=== PATIENT | female | born 1970 | race Caucasian/White ===

== ENCOUNTER 2023-10-10 08:56 | Outpatient (OUT) | payer OTHER, SELFPAY ==
--- NOTE | 2023-10-10 09:07 | XR_ITS ---
The [address] [address] Patient Name: LISETTE CAVANAUGH MRN: [id number] date: 1970 Sex: F Assigned Patient Location: [place] Current Patient Location: Accession/Order Number: [id number] Exam Date: 10/10/2023 09:24 Report Date: 10/11/2023 09:27 At the request of: LEONARDO VINES Procedure: XR tibia fibula LT 2V PROCEDURE: XR tibia fibula LT 2V HISTORY: Pain Of LEft Lower Extremity M79.605 ; bump that swells on distal leg COMPARISON: None. FINDINGS: BONES:No fracture, acute abnormality, or significant arthropathy. SOFT TISSUES:No visible soft tissue swelling. Skin surface marker anterior to distal tibia with no underlying abnormality. EFFUSION:None visible. OTHER: Negative. XR/XR tibia fibula LT 2V IMPRESSION: 1. No acute or suspicious bone abnormality. 2. No appreciable soft tissue abnormality with specific attention to the anterior distal lower extremity. Electronically authenticated by: NICHOLAS TRAN Date: 10/11/2023 09:27
--- NOTE | 2023-10-10 09:07 | XR_ITS ---
The [address] [address] Patient Name: LISETTE CAVANAUGH MRN: [id number] date: 1970 Sex: F Assigned Patient Location: US Current Patient Location: US Accession/Order Number: [id number] Exam Date: 10/10/2023 09:24 Report Date: 10/10/2023 13:02 At the request of: LEONARDO VINES Procedure: XR lumbar spine 2-3V EXAM: XR lumbar spine 2-3V HISTORY: Lumbosacral Radiculopathy M54.17 COMPARISON: None. TECHNIQUE: 3 views FINDINGS: Satisfactory alignment. Maintained vertebral body heights and disc spaces. Multilevel endplate degenerative changes, anterior spurring and facet arthropathy of L4-S1. No acute fracture or significant subluxation. Constipation. XR/XR lumbar spine 2-3V IMPRESSION: Degenerative changes as above. Electronically authenticated by: ANATOLY MENESES Date: 10/10/2023 13:02
--- NOTE | 2023-10-10 09:07 | US_ITS ---
The [address] [address] Patient Name: LISETTE CAVANAUGH MRN: [id number] date: 1970 Sex: F Assigned Patient Location: US Current Patient Location: Accession/Order Number: [id number] Exam Date: 10/10/2023 09:08 Report Date: 10/10/2023 10:46 At the request of: LEONARDO VINES Procedure: US venous doppler LE LT EXAMINATION: US venous doppler LE LT HISTORY: Pain Of Left Lower Extremity M79.605 COMPARISON: No relevant comparison available. FINDINGS: REGION: Left lower extremity THROMBI: None. COMPRESSIBILITY: Normal compressibility. FLOW: Normal waveform and antegrade flow between 5 and 20 cm/s. OTHER: None. US/US venous doppler LE LT IMPRESSION: 1. No deep vein thrombus within the left lower extremity. Electronically authenticated by: NICHOLAS TRAN Date: 10/10/2023 10:46
== END 2023-10-10 08:57 | disposition home or self-care (01) ==
LOC: US 09:01
PROVIDERS: PCP Nurse Practitioner; Visit Provider Nurse Practitioner
DX: M79.605 Pain in left leg (principal); M54.17 Radiculopathy, lumbosacral region
CPT/HCPCS: 72100; 73590; 93971

== ENCOUNTER 2023-11-11 12:27 | Outpatient (OUT) | payer OTHER, SELFPAY ==
--- OUTSIDE RECORDS SUMMARY | 2023-11-11 12:56 | XMS_ITS | CCD ---
Author Organization [facility] Care Team Providers Care Segment Block Layer Name Role Phone Aubrie Mcduffie Primary Care Provider AUBRIE MCDUFFIE Referring Unavailable AUBRIE MCDUFFIE Primary Care Unavailable AUBRIE MCDUFFIE Primary Care Unavailable AUBRIE MCDUFFIE Referring Unavailable JONATHAN CORREIA Attending Unavailable AUBRIE MCDUFFIE Primary Care Unavailable MITCH, RAÚL S Referring Unavailable MITCH, RAÚL S Attending Unavailable MITCH, RAÚL S Attending Unavailable FROY AUBRIE Referring Unavailable AICHHOLZ, COURT OF APPEALS JUDGE AUBRIE Admitting Unavailable AICHHOLZ, COURT OF APPEALS JUDGE AUBRIE Attending Unavailable AICHHOLZ, COURT OF APPEALS JUDGE AUBRIE Admitting Unavailable AICHHOLZ, COURT OF APPEALS JUDGE AUBRIE Attending Unavailable DR LAKEISHA MONET V Consulting Unavailable BAOHCHRISTIANO, SHANTHI DAVENPORTA Consulting Unavailable Aubrie Mcduffie Primary Care Provider MD Deejay Larios Attending Provider [phone] Deejay Larios Admitting Unavailable Deejay Larios Attending Unavailable Aubrie Mcduffie Primary Care Unavailable Deejay Larios Unavailable AUBRIE MCDUFFIE Primary Care Physician SHEBA FRANZ Attending Unavailable SHEBA FRANZ Admitting Unavailable SHEBA FRANZ Attending Unavailable SHEBA FRANZ Admitting Unavailable AUBRIE MCDUFFIE Attending Unavailable Allergies Allergy Classification Reported Allergen(s) Allergy Type Date of Onset Reaction(s) Facility (1 source) some foods Propensity to adverse reactions Unknown [facility] Other (1 source) soaps Propensity to adverse reactions Unknown [facility] Other (1 source) perfumes Propensity to adverse reactions Unknown [facility] Other (2 sources) Penicillins; Translations: [penicillins] Drug allergy Unknown (qualifier value) [facility] (1 source) No Known Medication Allergies; Translations: [No Known Medication Allergies] Propensity to adverse reactions (disorder) [facility] Medications Current Medications Medication Drug Class(es) Dates Sig (Normalized) Sig (Original) acetaminophen 325 mg / HYDROcodone bitartrate 5 mg oral tablet (1 source) Opioid Agonist Start: 01-04-2021 take 1 tablet by mouth every four to six hours Hydrocodone-Acet aminophen Active 1 TAB PO EVERY 4-6 HOURS 20 4 January 04, 2021 albuterol HFA 90 mcg/inh MDI (1 source) Start: 07-01-2017 take 2 puff(s) by inhalation every four hours for wheezing albuterol HFA 90 mcg/inh MDI 2 puff(s), Inhalation, q4hr for wheezing, 8.5 gram, Refill(s) 0, use with spacer chamber Start Date: 07/01/17 Status: Ordered cephalexin 500 mg oral capsule (2 sources) Cephalosporin Antibacterial Start: 01-17-2021 take 1 capsule by mouth three times daily cephALEXin (KEFLEX) 500 MG capsule Take 1 capsule by mouth 3 times daily 21 capsule 0 01/17/2021 Active PARoxetine hydrochloride 20 mg oral tablet (2 sources) Serotonin Reuptake Inhibitor Start: 12-13-2019 take 1 tablet by mouth once daily Paroxetine Hcl (Paxil) 20 mg Tablet Active 20 MG PO Daily January 03, 2021 11:00pm Problems Problem Classification Problem Date Documented Date Episodic/Chronic Fracture of upper limb (2 sources) Fracture at wrist and/or hand level; Translations: [Fracture of unspecified carpal bone, unspecified wrist, initial encounter for closed fracture] 01-04-2021 Episodic Genitourinary symptoms and ill-defined conditions (1 source) Incontinence 12-13-2019 Chronic Genitourinary symptoms and ill-defined conditions (2 sources) Microscopic hematuria; Translations: [Urgent desire to urinate] 12-13-2019 Episodic Other diseases of kidney and ureters (1 source) Cyst of kidney 12-13-2019 Episodic Other nervous system disorders (2 sources) Lesion of ulnar nerve, right upper limb; Translations: [Cubital tunnel syndrome on right] Chronic Other nervous system disorders (1 source) H/O: migraine 07-01-2017 Episodic Other non-traumatic joint disorders (1 source) Shoulder pain; Translations: [Pain in left shoulder] Episodic Other non-traumatic joint disorders (4 sources) Pain in right wrist; Translations: [PAIN IN RIGHT WRIST] Onset: 01-01-2022 Episodic Other non-traumatic joint disorders (1 source) Other specified joint disorders, right wrist Episodic Other screening for suspected conditions (not mental disorders or infectious disease) (1 source) Tomography - chest abnormal; Translations: [Abnormal findings on diagnostic imaging of other specified body structures] Chronic Ovarian cyst (1 source) Cyst of ovary 02-01-2014 Episodic Residual codes; unclassified (1 source) Other specified postprocedural states Episodic Spondylosis; intervertebral disc disorders; other back problems (1 source) Backache 12-13-2019 Episodic Substance-related disorders (1 source) Smoker 12-13-2019 Chronic Comment on above: Added secondary to d ocumentation in Social History. Unclassified (1 source) Other intraarticular fracture of lower end of right radius, subsequent encounter for closed fracture with routine healing; Translations: [Other intraarticular fracture of lower end of right radius, subsequent encounter for closed fracture with routine healing] Onset: 09-03-2022 Urinary tract infections (1 source) Recurrent urinary tract infection 12-13-2019 Episodic Results Test Name Value Interpretation Reference Range Facility Coding Summary.on 10-11-2022 Coding Summary. [id number] G h0bWw+PGhlYWQ+XN6JKSC zW38lkIDlmU7nQ6PNXKcL SywgQVBQTElOSyIgbmFtZ X4akHQqQVJx IC8+ZT0nRXOxTidmgHOfs 3V5mKQ1K99ypx6wVWkdkO Z3JPHlLdOqwafef4rplJy 6IDcuNmluOyBt HEHsbL84TNX4wA50Vu82o ZPpdFVpi5dzjEe1XkKqRC VyKIK3uRziOQwth6PkPDX yZ88qdAZte0R7 KUKaaXslmCQyTwTfkEK5t W8kGYboqkhus5pldagfLv w4ve77pWSaz5H4mVK8A9C xviG8XCRlcXSd AktquHVObM1fkqamm9meg kxtLvBkNAIlMPv6VUt8UF ZajObbXpJxPY93DSG6DUE fkvVbO2RcGXTf sDaxHoA7z9U1Zt5OY1AEK sncY1HLYIVKUMgoyJK+PC 89sz96S1GlXqghQkm1XQI iYQS3mXK2nM5q JWEqJUjjz2A1eKB1V8Tdw qMvtk8mb9imSLHtIJbjI6 3awANcp3O0PGYxfVG1FBO kvKqeXkIzaI20 Oyc+ZKJtqOwiv9FlYtlbt 2dia6axxYg3PyytOUFidv IlvYieXGB5e3MmWj0gMND xgTF9mFU0cI8x ZxXuOpA2RUuoH622VlDjz GXkYvqaZ41iE6CcaIK+PH KeVum2JZWilCxeDI0vK6V hZGRpbmctbGVm eAhpRL0yGNXzbrrqJZKzk D9uLDHzD3x9IdScKbU3IU wuD7PaWZKyekhtWm93fM7 kDxHyToR0BRiy B5ZkjeP8EGUgcPRvJPfyI PB0O45vt0U2KJNjOCSjZD D1mUZ8fM9xyAlstcktcUN mdDsgdmVydGlj ZJmuKGrhY253IDRjxZtcU kNvZGluZyBEYXRlOiAgMD MvMTcvMjAyMzwvdGQ+PHR lYBY4hVsoXOAa zSNrIYruXa2rbAmmpIddT W0eLNDedseoIMTbvC2cCE YjyDCtbBkrXV4bPORovmq ie403OtEhSAI5 YMJfpQRzI5KmvF1eXoDoS FJwOWMcT0XezXDlNWdqM7 29UDclKbM2XDXogoHmS8O sLWFsaWduOiB0 d6K4Se4Gf7ZxfjccR9Vyf WUwXnVgKmgrFCh8O5EyFr wvdHI+XX24ZJFlRX10LQo 1OFJ8dZktHHnb SSUwL1SkoP3wZhDtYJZjS GRkOyc+PHRhYmxlIHdpZH RoPScxMDAlJyBzdHlsZT0 jAp5eUPNgHPDa yJbpfVKjQnRjm9vxVRObA GdpLD6zkEidZ1QtcPV2UP Dah5p9Ko26O05xM5KzqRZ +PTWgrZO4yKI3 mY2dXxJgZqR0JKemW732W cUlgSXrGcmud5svz9lnbH g7ZpL9RDJwaiQljBldGCL 0b7CpMh51P07g IHdpZHRoPSIxNSUiIHZhb Cbrjb8kvF2fFy1+PGNvbC S9qMB6vD5qIbYiWfV6WHn gT642BrSsyYEg Wmvla1fnw9ujkCh7CtQyM KMivbFxnRmyXYX5g0KkXr 93P3SqlPukv8KqOwa0ql1 3nVBoy5W0sGL8 U3GrEWVnykqpyZHkzFveK V8gPPMfjpldHKAyvK5wKA KhW1e7QbLiNoU1TUwiY7P azjH8KDFuuJLo CSBabEJBuU8timmiv7bfi oljBmBfURStXEt0SLc6LY IjcMyiMcZiDQF1WgW7WHG 6mKYlcN0xnLoa ugxspD9yUxs+XYC0lMQnd SAQWX8pWtpmdDN+PHRkIH O1fVxhCMidSGNujC4gTHF sZ7n4XrUhNoB3 RPmjH6XnqqY4SWHmxHBvR SNbuFRAxT1kjywfn3rbex xcQhJmHAAcGNl3WWz7FVZ saWduOiBsZWZ0 LnH7ZWC3jPUphM5rpEmie dxyqQ1nPuo+QmlydGggRG D4AAt1S4GgTiu6PWMgeQy wKQ5jwKMsZEyy Tp5qdMlxaHbtDX8yREAel xbjl458PeKdw1ffQWDesF SxNWzhGVI0M47mp3C3HFK fFXMpQLE0jQU2 tF0phUucjsjtrQFzkEckx eWabBnfLFltVJzgM895CK LmaVayQjUdCVc8Y5DkUjx 7EHTxeVwtIG8k uITkUCriXu4xmCpmbEoeX Z7uWHYjgpmcw674BeItf6 auEWZbkBTbULgaHZJ8T26 zo0A2YZWaXJBh RSI4fWR2mT5evNpinagmh GVmdDsgdmVydGljYWwtYW awD272JVImwKzsZpLdlKh 9C5TsPyo2TAQf jUqqAG5gmIBzZTxiZe2ml AoqfKlvCZ6mFBGzikoyb5 32UjWvj6ruGESzwJGgZVn yZJF8S58yc6X6 IWMcCEWgCET1wJN6mO7pn GlnbjogbGVmdDsgdmVydG ayVOcsZMuaM645CLMjhYs nPlBhdGllbnQg CZypWFt9W8LtJnwhxBJ+P S96XIOdFR21bYQkaDVmj3 jbuWq9AkSrLKUuMQF9jUe sMLsbh6YqDYWz E18awBWry4D2WXPyfQbzx GFzQeKsgIL6aY0qRTrkqf lwx9dwjajdDqlrp2ihja6 4pX19J29hOYcn ZHRoPSIzMCUiIHZhbGlnb u0djQ0zAt7+VLMqpEL6nC Q7cC6vCYLiHfX3ZRwmJ10 9InRvcCIvPjxj e1zps4tohJp1HrT0SGSrz bGczZehZWA7n8SoLz58R2 9sIHdpZHRoPSIyMCUiIHZ xmLiszq9vlL4f Ii8+NVUziIA4xDQ1mE8zW xWiJzI9KKcjN022KkZnfK SiBhqgB95tK0YahGJ+PHR xQan1WCYtfHct ZN7thXXsOQizWc8mVNS5H xWhMdEvSPsqP2LnMQZrfj qburbbeLI3ZCDyONCghU6 7Yp4fcKfzQJSt dSXQwE0heerwx7navagfU iWnXOGyIZl8WBu0JTCwnK rpNrIyLAX2HwJ3MWH1wNB fuR6hsTgwndxb oY1gU2PqJPSwjbebAr26g E2gOcTbDsL3BPahAgw+SE vGU5JhQNaQMv7DFVM1U4P mPdr6ZJRakBuf UB0frEJgOEurZq7kgQbvx EfiNZ2oWBTmodccHUZviK 3dELVbeGJqzErrSL0gRSK osekji258EpBj EFX0ENGccRKuA4YrkX2sJ sRhESAwSHNjQ5NcoZFaIA rzK270RBhkDdA7TCXkrcE vK9BbMGLbdOjq XrC3v5C5Wh6jRC2iDF9vP WlvOK43DO82dQKwr4W1lC X5B5VgGFRrsdswdjaniUE 5QUHpASGwiF01 vNLoHBuuRw8rj6S9u347E DYvAMRtdQ74Pv4goWnrWU GepDDIzM5xifokc9mspkm gIzAwMDAwMDt0 RDu3FTUudCnpPqScLYT1H xW3FOR3iZOwtS8zjBumaw vboH1zItl+NTEgWWVhcnM 5N4GsNse5MMCe dGpwNM4whYOfLYcuQq3wf VlprEomAJ2kWMZjzsxqPO WsqK2hQWUvxJPtrRugMQ7 tYGXfqyxgh194 ZiBqIUY5RFLutFAiZ5Wuk I3vTrXyUGRrDGTfB0QwhQ KrTObaD892MAkuKqG0HDR ekcFpY6QmSJUq dShfWjQ1z9D5Ac6MCD2oa JI7K2VfNot6AVHejIldZJ 6ixGUdKDhmYr7xwXxtqWz kMG6yFBNuvakv IBCrbE8kXHGfeGGdzMgbJ V9hWLXrhplfm283IqPbDQ E8HKWdeTXlY0DqoC9iCmB dBGKtEMIkU1Ww pRBcWNtwP997YBtdWsZ5J UNpybPuH2CpNHSqoRpsNw F8q2U4Gq6EuFWsNVPnMK6 1WA82GX57R1Xz PjwvdGFibGU+PHRhYmxlI HdpZHRoPScxMDAlJyBzdH fkDV6wYy0wGWTsHPTsaYv quKSfIiIkj2iq CZQdIYkuZJ6skHyfP7Uzc MH7CXXmq0k6Bm17E56nR9 JvdXA+FBWgxQA3tJQ8bQ8 sRjAvIkY4ITdc C456CcZxvSEaYeleg4kab 7fhcUl3LiWlSYTmqcAgcU htXQK9w2SxSv13O25sAVw pZHRoPSIyMCUi GLNrhMbebu2orX0sTi6+P BYfwQI0lUQ1cS2sEdKmWf R9FYrgZ062WlCkgNMtFqq rT40oD1WbjYY+ RRJzYdh5JQOtcTiaTP6iw QZjCPhkZh6aQIC4RcOzFs OpBCjyR2BxPNYchdgljqw qpYI3LMHsKAWv lI37Ei1vuSaqYy5mSABtW EB4KDVcoIFqV6MzzL4iWe GgRNAyJQDuI3TnxRReHJt hN369ZVnsLnG8 BIEicqIpW7LbKMQqbTabY tJ1d1Z3Ur7AcNtrrFRyHJ 0sWjXtKVm2J6SwMwl1TWP snRkeLW3iyWIn PSaiFx4plTcaaQuuSA3oG WBikbilu019BhUak8tjIC XtyQYaPYewBCA4U12np3N 5LXYiHINqXJO5 aII7tZ1tqCnptwtoqFIin DsgdmVydGljYWwtYWxpZ2 05CAJucTwxCdILVwb5P8P qOhw6HIEicVne SB7vaLPsAZywLr1heBdjn YopGB3oJGQqfmidu648Lx Ceq7eeSQIduDCxUOvwYOQ 3C35am8Z5JVFi PNVzAFF2qTP2yR1afGxnw jogbGVmdDsgdmVydGljYW akWYmnY867PIDjfPqhMi2 NRxx2N6EmFny2 GUDhbSlmHF3itWKiALakO m7laEerjIldUS2vYUXnts xgi239TlMjm2yjVSKguMG bFSzoAVZ0S85b y6Z1GQFzXQVkESF0nVJ4o O0peHxegxmygQIrtXtrfa OvsJzwKPgnAEcnF988KBV vcDsnPlBheWVy OjwvdGQ+TH40dl18B3GyE qefDpq7HJEaWCM8bYP9hW 7cSDEaMZesr8T2vYD2P5A sorJwkl8vu7eu YXBz (more content not included)... Normal [facility] Estrone Lvlon 10-08-2022 E1 [Mass/Vol] 26 pg/mL Invalid Interpretation Code [facility] Comment on above: Result Comment: Rang e Adult (Premenopausal) 27 - 231 Menstrual Cycle (1-10 days) 19 - 149 Menstrual Cycle (11-20 days) 32 - 176 Menstrual Cycle (21-30 days) 37 - 200 Adult (Postmenopausal) 0 - 125 Performed at: [place] [id number] MD Mason Kidd Performed By: #### 1 [id number] #### [facility] [address] [place] [address] Consent for Treatmenton 09-25 Consent for Treatment [id number] .[id number]:127 Normal [facility] Physician Orderon 10-04-2022 Physician Order [id number] .00CD:127 Normal [facility] XR wrist RT min 3V*on 2022 XR wrist RT min 3V* [facility] Main [place] [id number] XRay Report Signed Patient: Nirali Cavanaugh MR#: [id number] 5 : 1970 Acct:[id number] Age/Sex: 52 / F ADM Date: 09/03/22 Loc: [facility] Room: Type: [facility] Attending Dr: Deejay Larios MD Copies to: Deejay Larios MD Ordering Provider: Deejay Larios MD Date of Service: 09/03/22 XR/XR wrist RT min 3V*: Other intraarticular fracture of lower end of right radius, RIGHT WRIST - 4 views CLINICAL DATA: Follow-up fractures COMPARISON: 02/15/2021 AP, lateral, oblique and ulnar deviation views were obtained. There is redemonstration of a volar plate and screws along the distal radius. The fracture at that site has healed. A tiny ununited ulnar styloid fracture is again noted, without change. No new fracture or dislocation is identified. No focal soft tissue swelling is seen. XR/XR wrist RT min 3V* IMPRESSION: STABLE WRIST FRACTURES AND FIXATION HARDWARE. Impression dictated by: Emma Morris M.D.09/03/2022 10:22 AM Dictation Location: [place] [address] Transcribed By: [facility] 09/03/22 1022 Dictated By: Emma Morris MD 09/03/22 1021 Signed By: 09/03/22 1022 [facility] Cortisolon 08-30-2022 Cortisol [Mass/Vol] 20.5 microgram/dL Invalid Interpretation Code [facility] Comment on above: Result Comment: Nirmal isol AM 6.2 - 19.4 Cortisol PM 2.3 - 11.9 Performed at: [address] [id number] PhD Marely Enriquez Performed By: #### 1 [id number], [id number], 2036840, [id number], 8269975, 93049348, [id number] #### [facility] [address] [place] [address] DHEASon 08-30-2022 DHEA-S [Mass/Vol] 107.0 microgram/dL Invalid Interpretation Code 41.2-243.7 [facility] Comment on above: Result Comment: Perf ormed at: [address] [id number] PhD Marely Enriquez Performed By: #### 1 [id number], [id number], [id number], 4870892, 17349380, 9356951, 77087745, 4262345 ####[facility] [id number] [place] [address] Estradiolon 08-30-2022 E2 [Mass/Vol] pg/mL Invalid Interpretation Code [facility] Comment on above: Result Comment: Adul t Female: Follicular phase 12.5 - 166.0 Ovulation phase 85.8 - 498.0 Luteal phase 43.8 - 211.0 Postmenopausal <6.0 - 54.7 1st trimester 215.0 - >4300.0 Ryan ECLIA methodology Performed at: [address] [id number] PhD Marely Enriquez Performed By: #### 1 [id number], [id number], 2966461, 2412895, 12295592, 9914278, 32131959, 1152300 #### [facility] [address] [place] [address] FSH and LHon 08-30-2022 Follitropin Qn 115.0 m[IU]/mL Invalid Interpretation Code [facility] Comment on above: Result Comment: Adul t Female: Follicular phase 3.5 - 12.5 Ovulation phase 4.7 - 21.5 Luteal phase 1.7 - 7.7 Postmenopausal 25.8 - 134.8 Performed at: [address] [id number] PhD Marely Enriquez Performed By: #### 1 [id number], [id number], 9519648, 4450378, 17068497, 6063558, 67791761, 7849993 #### [facility] [address] [place] [address] Lutropin Qn 52.4 m[IU]/mL Invalid Interpretation Code [facility] Comment on above: Result Comment: Adul t Female: Follicular phase 2.4 - 12.6 Ovulation phase 14.0 - 95.6 Luteal phase 1.0 - 11.4 Postmenopausal 7.7 - 58.5 Performed By: #### 1 [id number], [id number], 4732181, 6259887, 00373527, 1773681, 15765918, 3898528 #### [facility] [address] [place] [address] Testosterone F&Ton Testosterone [Mass/Vol] 46 ng/dL Invalid Interpretation Code 4-50 [facility] Comment on above: Performed By: #### 1 [id number], [id number], 7419548, 2251202, 03633302, 9231205, 97928324, 1113365 #### [facility] [address] [place] [address] Testosterone Free [Mass/Vol] 1.9 pg/mL Invalid Interpretation Code 0.0-4.2 [facility] Comment on above: Result Comment: Perf ormed at: [facility] [address] [place], [place] [id number] PhD Marely Enriquez Performed at: [address] [id number] MD Mason Kidd Performed By: #### 1 [id number], [id number], 5230963, 3038817, 84453808, 2274676, 88711167, [id number] #### [facility] [address] [place], [place] [address]ang[place] [address] Coding Summary.on 08-27-2022 Coding Summary. CD:[id number] G h0bWw+PGhlYWQ+NQ1AVXG lA46tnJQfeI8HW5nQAH5D DSGVMWTBGK0UMI8baZZ3Y PbfI8SobjXk KyekyXEjFE83JRc6IAR5v ZncIQsksY0zuSOlW2m7Of RwRA42iI48ZPtuFNExRlY 3LjZpbjsgbWFy M9fpHpLquPFjDqr+PHRhY mxlIHdpZHRoPScxMDAlJy WwpSjzUU6mIa6kJNJoDXD vbGxhcHNlOiBj j4zdQYIfBFbhCH9ehRxyA 4TqnIN7WHPzp4b1Jz09bD I+FUOkNZD0bYpsIKfgp48 1XjKqr0rxDYN6 sONeFVumQWB9T09qd6O8N YFrAETrGKI5pAY6oS6hhV erpqcdL7LeoUDnFtJ5HPE 7pBTxwD4bmChl gnzhwF6gSee+V25ZCV2DF IGMCQ9RAqc8J3ZvUibufE I+UY18NDBoSQ72iZLvnCQ nd3qbdCz2UgDx DHWmVOL0pHsoOKfve9SmO TAnC28lfTAyz6Y9HYVczF vvlNTbIkNvfBK1tW5uBXk kkxqyp9yqutjc Xjcoh0pnaw06oO12W96qY IcsWNHcUFN4QNHnOKQnuJ zxno4grS9aRx5+MPegk5o dx8qymSg1KgLz VERbhbGofGjnZTB2o7XgW x80O5KkkWtrc7LwAgu3fu 97zSRgi5X4wWS6APnbVOF teH1xPSjxBgT3 OBYhDwHxsV66fJPwCCfvU m7aiScwrOusNC6nSCGfiu kpWEBzzU0tURPouRVxhYw jMB6dKTHnuoqx h967NiDiACI2OUPsoBMaH 0DqdI5hIlVzTQCyIZNrE9 MnwEYiEMmoZ867RTzeEdU 6FWCsjoChD6Gb AKKapZynFwX2f9X3Yc2Qr 5MnyfzcYXK6RWytQNNeZu NmDcCsWiT8D8KvNgp9ZHH hqXmpDR7nK5Yp HVYzfrdtytkfkBL0HLNxL CTayK55aYJjOWmiZs4bs5 S9n817KGVyHYAypO64Sz4 udDogMTBwdCBU wH4rohtuc2ipcdrvCjTwS GVsJMz2GDq5NEGcwGzaTz WyZOB1YfO1QRB8yELxnW7 mpUjybrkgpN5i Oyc+J30kuC4oFAY1RWI3b gplPSVoftTuMZ32DF58H3 RyPjwvdGFibGU+PGRpdiB caYpxDJ8uOfAf v5yue9HqAVwtD9BySAXpZ NnqZfz8VONqRVT3rXD2dY 4xJIZsMArdi2N6xZH4M5G uzoAfet1kg1zi DKInGJcsM08owZFum0I9B QYhmCJ4VAPnkBrqNmQbkN 93Oyc+GEQrfDqvh1VpOxb ts8ziq9rvlNn3 BoHvCJRdipNvlBwkERF0s 3XoCw00B23fUMtvCHCmOW TpPSGyLLOkgAjldp9syI8 wIi8+PGNvbCB3 gHJ8dK5vGZLeOkK9KEyjP 680EqCazVQxIxzkz5vjf2 drxGt7KgGoEJIdzhBqtQq rTWV9d4XeNq57 Z41sGUohCQWyFBSeKCTwQ DCgkAgaad0arO8eTy3+PC 6wf8kqjq51pE79oUO+PHR vNUY9cBnyVLmy FVCoaQ8vRUtvGwG7SBRzD eJerR82jTMzYLjgCj2rmY orjEpzMX4kJAIptosrr73 5ClYme8ffUVBh jAZbPGqlDIH7G02vm1G5N WWnMOEnYXC3oPW6nU4iwR lnbjogbGVmdDsgdmVydGl iVRafPJucC186 IHRvcDsnPlBhdGllbnQgT eWtPZe0E6ScWpr9MBZzpM ywTD3cbVSwSAcpGa6viRk uwRdyYF2eBYGq rebje094TrLib9yeHJPkx IDjFYpvRES5B81ab5W5RS DfTZSgFTA9vAR2kU2aiUf nbjogbGVmdDsg vtOfcXtuEGsnUMjlP376R HRvcDsnPkJpcnRoIERhdG W5WM03HI63kIQnc6R8eMV 9J9QqSSOcgonp fpoqlDI3CYIuWNGmiJ55M z0avQjfQe5ySSIcYTQ9XG XzsFGlR2DtiG5oGyUaVRN gKMKgS8VfxAFt MJkgU686NNztBaF0DZKtm qEsT5SmKEHguYnzKoX1o3 S4Mj7HH2Z8DS74BU83cFK dt9W0vTV1M8Bw ZQClmibcbmxhbJC5DPYxQ MYcdG32Oc2hhLwlFt6wKB IlMLO1GJWgqUKzP2PplP5 yOiAjMDAwMDAw H8DntWQcJRfxW321AGcuB iG2SOVwmvJoH7FdFSYgkQ nfKdK4z9I0Vd7MGVe7TW9 9WD87mDIgm3W8 qZR1B5PlNBAfdocbjykml QP1DTNtXGOseA42Ue5scD oaDj5cZDOzMMP6KJZuoXC gN1SmkP1uDcFv AAWxRHNpE8ZpyWQhKHbuF 266NIvlGmH4IELribPyS1 CkIOMrbDmgZwN0w6T0Pg2 GHSCuVU36IGO1 nUM3TG69CL89H7SrUdqku GFibGU+PHRhYmxlIHdpZH RoPScxMDAlJyBzdHlsZT0 eKj5xCEDtNUWi aYowuHPcUpUrb7gsPCRyI HlxYA3nnJrtW0OrxVV4PF Kho0p5Vm45E03uB7UyuAW +RVFvqYB3mTY1 tS0eBiLpMpF7HLsiI766G dJlwYEeSrbeb6tws8kxzR j9PxL0MUSmbkZptTenZTK 0b8WqTf73C72i IHdpZHRoPSIxNSUiIHZhb Htzhm0meA7gHw3+PGNvbC X7sRI2vK5iBvVmXaA1RLf zG375LyGaqTSh Aoyyb9fqk9braFd5EuNzB CFutcZaqRgkKYN4p9VjLo 70D4VarAlza4EtWjz4vq2 6rUPzo1I0rDO9 N3YcIJSjqtappVAroDtzV D2wAWZpdzyePHJjpN1dYJ MmD0w8SsKzHwS1IVqdA0R qtzQ1WPCoxXAy RDlyFYS5E54fp1J5JHOiC UBsADI2hZE6cL6ugXyigh ogbGVmdDsgdmVydGljYWw nNLczH767XHYo fEvcPKHjwZ9vAOUqfPTgy EcmVD8gMYWvqjlsVmvBT8 sMQJMCJS8AKBOGKM48US3 3dYGqv0B0kUI4 Y3UqYOLdocwefdaljZE5H FCjYDKwwJ05aGCfHCsrKk 0om3L7v199ILXcLMBrgI5 1Ho2daYvgXOGd fGBKlA8euftnw7vekakuT lStXGWdCJb2MTp6BPIwjM dcBvAbYVZ0WtX3JZH1xYX hzY8sxJzzdrbm wQ7hRgl+KSFpWXatPGi9L TwvdGQ+TRLhNNS8dIuzXG ijCJGtsW1wRDWtG5h6ZsC hZaY3GEwcP3Gv QMUzaxllHz55fN7gUxNhM nS6UEwoJ9OvnfK5QUGvkI BkCKpcQDG2N65jm9C6YXI rMEKoRTF7uXF2 pP5zzHqvctykpDOkvTriy hKfmQqxYWpnSWxoI700GH RvcDsnPjUxIFllYXJzPC9 6FF77hFIfb4A5 vZP5T0KwMIAlwlbwkgqdk SL7ZZFjQLZrcI10rLNfPV fwQx3aq2W2y479GSVzEFV snS72Oz9prOew IMIysWMJkR6emllaa8zkt xdcBmGlUMSbXFk7MDb2YY TuiFzlWtXaJMY1GeQ5QXX 5lFVvjY7xhUsk lhnheW1mAqb+RmVtYWxlP V74UF08kXKbd0P9tFG5W2 VgBWBrhtovolrlmDR5EHN qVOAadE06hKMo JNbqRr6ho1U3u013LEMiP ICsyR10Ql4sbFnyJWOalU KCyF6ztpvpa0grqigsYcH uNBIbMMk6ULj2 VSEbeOjsFwAkYFX7KzY5O XP5jRUhlO8epAuwyakflR 9wOyc+Q6T3xPE0vRKpkNu vdGQ+UL01iv17 S1VrWqjtOrz0MHAaVYC8u QL8uY7hCGOkVAagz7L8eD F0C2IpicGqit6vy3ysLUQ cRQesB13mrPJu o1B4USPxwAN9MIWzxHghW pKuvX77Ish+PGNvbGdyb3 CdFnoxj5sed7ittVv2GoN wJSIgdmFsaWdu GPZ8b5VtMm08V64tUVwnB HRoPSIzMCUiIHZhbGlnbj 2cuT0yEy9+MTZuaYM9dMK 7cY9kTyHvSkL1 OCskF860XrYbfJGlNtxhr 1fny8zocEd7WnDqGEKuam TmeBseUKA3b6NzIf50F9Q qvYgqm1KqAdb4 ez43yFDmf5Q6gUX1Q8AsD FSxbgfpiJDjpDjcSG4aHI PpayvyTCPzjF5sGPWiJ4l 7UpOjIgK7WAnk H2RjrcH7NXXciVAbDWDab JUXcP9ywvmlb2tiqvfkAo DyAFBqYCo9ZDm6YUTrzVx wKsQrWDJ6JhW7 BES8sWObdE0reFvvocvep G9wOyc+VZy8w2qeuSKtRZ 5oeRV6NO51KD50kTRxe8L 4iEP8M3ExKMEo bfjmumgxdOX3TPCtOTSbt L65Wa2jzHisIw2wGLCrZP O8UBKtiERsV3MthH5uRbE xEHSfVDVxX8Xh xTTdDBfzO490FGddBqM0I JLtiuTgH1PuBNWrlPeoNf P9b0A2Tz1WFC29SF17SP2 3tJKpn1X5uFR9 N8OoMALuvscyawtgfRM0Z VUkUAJxnW34Rl2vmGhmWa 5mFYMdXBQ9KZCciWBiV6Y udR7iLmDgXRDo SNLpX4FplQNxZSzwG092J LcjPtE5HJVxozWzO9GlNC FvsVneIfV6y9K5Lq4MAv5 8GN90PZ67mMCl y7T5tTN3D0ZnDUEhfetdm qnfgJY5YRWeFWUasX64Gc 2eiAuqGp7wXVNwYXG7HFU gvLQtQ3RtnM4o IxKwQBYnIOYnJ5MkbNRjB SgjV781LXmbOqB2YVDezm EzU5KqEHNpgJekDiS6j0B 4Wb8RYRcnutj0 H2NuUvhlpCD+VT71HMCoR S18bLUrpVFpc5sxbKf6Ve JsPGPoACP0rKxnYPejs5A uOWHfO63dxQDu c2U6 (more content not included)... Normal [facility] Miscellaneous-LCon 08-27 Lab Miscellaneous COMMENT Invalid Interpretation Code [facility] Comment on above: Result Comment: Test Ordered: [id number] Sex Horm Binding Glob, Serum Sex Horm Binding Glob, Serum 73.8 nmol/L Reference Range: 17.3-125.0 Performed at: [facility] [id number] PhD Marely Enriquez Performed By: #### 1 [id number] ####[facility] [address] [place] [address] Consent for Treatmenton 07-30 Consent for Treatment [id number]#1 .00CD:127 Normal [facility] Miscellaneous-LCon 08-26 Test Code 619506 Invalid Interpretation Code [facility] Comment on above: Performed By: #### 1 [id number] ####[id number] [place] [address] Test Name SHBG Invalid Interpretation Code [facility] Comment on above: Performed By: #### 1 [id number] ####[address] [place] [address] Physician Orderon 08-26-2022 Physician Order [id number]# 1.00CD:127 Normal [facility] Progesteroneon 08-26-2022 Progesterone [Mass/Vol] 1.20 ng/mL Invalid Interpretation Code [facility] Comment on above: Result Comment: REFE RENCE RANGE Males 0.14-2.06 ng/mL Non- Females Follicular 0.10-0.60 ng/mL Luteal 3.00-17.5 ng/mL Midluteal 3.30-18.6 ng/mL Post-Menopausal 0.10-0.40 ng/mL First Trimester 8.30-66.5 ng/mL Second Trimester 18.9-66.1 ng/mL Third Trimester 35.8-312.4 ng/mL Performed By: #### 1 [id number], [id number], [id number], [id number], [id number], [id number] #### [facility] [address] [place] [address] TSHon 08-26-2022 TSH Qn 1.89 m[IU]/L Normal 0.34-5.60 [facility] Comment on above: Performed By: #### 1 [id number], [id number], [id number], [id number], [id number], [id number], [id number] #### [facility] [address] [place] [address] Vitamin D 25 Hydroxyon 08-26 25-hydroxyvitamin D3 [Mass/Vol] 40.7 ng/mL Normal 30.0-100.0 [facility] Comment on above: Result Comment: Vit lorenzo D deficiency has been defined as a level of serum 25-OH vitamin D less than 20 ng/mL (1,2) by the [employer] of [employer] and an Endocrine Society practice guideline. The Endocrine Society further defined vitamin D insufficiency as a level between 21 and 29 ng/mL (2). 1. IOM (Diagonal of Medicine). 2010. Dietary reference intakes for calcium and D. [place]: The National Academies Press. 2. Yael MF, Aracely NC, Nikolas FULLER, et al. Evaluation, treatment, and prevention of vitamin D deficiency: an Endocrine Society clinical practice guideline. JCEM. 2011 Jan; 96 (7):1911-30. Performed By: #### 1 [id number], [id number], [id number], [id number], [id number], [id number], [id number], [id number] #### [facility] [address] [place] [address] XR WRIST RIGHT 3 VIEWSon XR WRIST RIGHT 3 VIEWS EXAM: 4 view right wrist VIEWS,, 04/10/2021 14:23 PM COMPARISON: No prior studies available for comparison. CLINICAL INDICATIONS: pain RELEVANT CLINICAL HISTORY: M25.531:Right wrist pain FINDINGS: 5 images obtained. There has been open reduction internal fixation of a comminuted distal radial fracture with a volar plate and multiple fixation screws. There is minimal displacement at the fracture site with healing. There is a tiny osseous fragment adjacent to the ulnar styloid likely posttraumatic. There is an ulnar neutral variant. No radiopaque foreign body or pathologic soft tissue calcifications. IMPRESSION: Status post open reduction internal fixation of a comminuted distal intra-articular radial fracture with intact hardware and healing. Likely posttraumatic changes adjacent to the distal ulna [facility] XR SHOULDER LEFT (MIN 2 VIEW S)on 03-06-2021 XR SHOULDER LEFT (MIN 2 VIEWS) EXAM: XR SHOULDER LEFT (MIN 2 VIEWS) HISTORY: M25.512. 50-year-old female left shoulder pain, fell 2 weeks ago. COMPARISON: None. TECHNIQUE: 3 views left shoulder. FINDINGS: Acromioclavicular and glenohumeral joints are normal. Negative for calcific bursitis. IMPRESSION: Normal left shoulder. Interpreted by: Nino Pelayo Jr., MD Signed by: Nino Pelayo Jr., MD 03/06/21 Final result Normal [facility] XR SHOULDER LEFT (MIN 2 VIEW S)Ordered By: Aubrie Mcduffie on 03-06-2021 Normal left shoulder. [facility] [employer] Work Phone: EXAM: XR SHOULDER LEFT (MIN 2 VIEWS) HISTORY: M25.512. 50-year-old female left shoulder pain, fell 2 weeks ago. COMPARISON: None. TECHNIQUE: 3 views left shoulder. FINDINGS: Acromioclavicular and glenohumeral joints are normal. Negative for calcific bursitis. [employer] Work Phone: Kj, Mhpn Incoming Radiant Results From [employer] - 03/06/2021 6:09 PM EDT EXAM: XR SHOULDER LEFT (MIN 2 VIEWS) HISTORY: M25.512. 50-year-old female left shoulder pain, fell 2 weeks ago. COMPARISON: None. TECHNIQUE: 3 views left shoulder. FINDINGS: Acromioclavicular and glenohumeral joints are normal. Negative for calcific bursitis. IMPRESSION: Normal left shoulder. [employer] Phone: [employer] Phone: Encounters Encounter Date Encounter Type Care Provider Facility Start: 10-06-2023 End: 10-06-2023 ambulatory AUBRIE MCDUFFIE Not Available Start: 10-04-2022 End: 10-05-2022 ambulatory SHEBA FRANZ Facility:[facility] Start: 10-04-2022 End: 10-04-2022 Patient encounter procedure SHEBA FRANZ [facility] Start: 09-03-2022 Office outpatient vi sit 15 minutes [facility] Start: 09-03-2022 End: 09-03-2022 ambulatory Deejay Larios Facility:[facility] Start: 09-03-2022 End: 09-03-2022 ambulatory Aubrie Mcduffie Work Phone: [facility] Work Phone: Start: 09-03-2022 End: 09-03-2022 Patient encounter procedure Aubrie Mcduffie Work Phone: [facility] Start: 08-26-2022 End: 08-27-2022 ambulatory SHEBA FRANZ Facility:[facility] Start: 01-01-2022 End: 01-02-2022 ambulatory SHANTHI MCDUFFIE Facility:[facility] Start: 04-10-2021 ambulatory [facility] Facility:[facility] Start: 04-10-2021 ambulatory [facility] Facility:[facility] Start: 03-06-2021 End: 03-09-2021 ambulatory AUBRIE MCDUFFIE [facility] Start: 03-06-2021 End: 03-08-2021 Subsequent hospital visit by physician Austin Miranda Rad 1 [facility] Comment on above: Acute pain of left s houlder Start: 01-18-2021 ambulatory SHANTHI MCDUFFIE Facil ity:[facility] Start: 01-17-2021 End: 01-17-2021 Emergency department patient visit [facility] Procedures Date Procedure Procedure Detail Performing Clinician Start: 09-03-2022 Plain X-ray of right wrist Aubrie Froy Work Phone: Start: 03-06-2021 Radex shoulder compl ete minimum 2 views Aubrie Carvajal [employer] Work Phone: Removal of ovarian cyst FADI VALERA Plan of Treatment Date Care Activity Detail Author Start: 03-28-2021 Influenza vaccination Flu vaccine (# 1) [facility] Work Phone: Start: 2016 Screening for malign ant neoplasm of colon Colon cancer screen colonoscopy [facility] Work Phone: Start: 2011 Lipid panel Lipid screen [facility] Work Phone: Start: 1992 Screening for malign ant neoplasm of cervix Cervical cancer screen [facility] [employer] Phone: Start: 1990 DTaP/Tdap/Td vaccine (1 - Tdap) DTaP/Tdap/Td vaccine (1 - Tdap) [facility] Work Phone: Start: 1986 HIV screening HIV screen [facility] Work Phone: Start: 1983 COVID-19 Vaccine (1) COVID-19 Vaccin e (1) [employer] Phone: Start: 1977 Pneumococcal 0-64 ye ars Vaccine (1 of 2 - PPSV23) Pneumococcal 0-64 years Vaccine (1 of 2 - PPSV23) [employer] Phone: Start: 1971 Hepatitis C screening Hepatitis C sc reen [employer] Phone: Payers Date Payer Category Payer Self-pay [id number] 2019 Medicaid [id number] 1971 Unknown [id number] 2.16.84 [id number] 1971 Unknown [id number] 2.16.84 [id number] 1971 Unknown [id number] 2.16.84 [id number] 1971 Unknown [id number] 2.16. [id number] 1971 Unknown [id number] 2.16. [id number] 1971 Unknown [id number] 2.16.84 [id number] 1971 Unknown [id number] 2.16.84 [id number] 1971 Unknown [id number] 2.16.8 [id number] 1971 Unknown [id number] 2.16.8 [id number] 1971 Unknown [id number] 2.16.84 [id number] 1959 Self-pay [id number] 1959 Unknown [id number] 1.2 [id number] Unknown [id number] 2.16.8 [id number] Social History Date Type Detail Facility Start: 01-17-[facility]21 [facility] [employer] Phone: History of tobacco use Cigarette Smoker M [employer] Start: 01-17-2021 Tobacco use and exposure Never used [employer] Start: 1971 Sex Assigned At Not on file [facility] [employer] Phone: Start: 01-10-2021 Tobacco smoking stat [facility] Smoker (finding) [facility] Start: 1970 Sex Assigned At Female F [facility] Sex Assigned At [facility] Start: 12-13-2019 Tobacco smoking status Heavy t obacco smoker (finding) [facility] Tobacco smoking status Never [facility] Medical Equipment Procedure Code Equipment Code Equipment Origin al Text Equipment Identifier Dates ORIF, fracture, wrist Orthopaedic fixation plate, non-bioabsorbable, sterile [id number] FDA Start: 01-10-2021 ORIF, fracture, wrist Orthopaedic bone screw, non-bioabsorbable, non-sterile ()[id number] FDA Start: 01-10-2021 ORIF, fracture, wrist Orthopaedic bone screw, non-bioabsorbable, non-sterile ()[id number] FDA Start: 01-10-2021 ORIF, fracture, wrist Orthopaedic bone screw, non-bioabsorbable, non-sterile ()[id number] FDA Start: 01-10-2021 ORIF, fracture, wrist Orthopaedic bone screw, non-bioabsorbable, non-sterile ()[id number] FDA Start: 01-10-2021 ORIF, fracture, wrist Orthopaedic bone screw, non-bioabsorbable, non-sterile ()[id number] FDA Start: 01-10-2021 ORIF, fracture, wrist Orthopaedic bone wire [id number] FDA Start: 01-10-2021 Evaluation + Plan note 10-04-2022 Note Date & Type Note Facility 10-04-2022 Evaluation + Plan note Diagnostic Tests PendingEstrone Lvl 10/04/22 [facility] Evaluation note 09-03-2022 Note Date & Type Note Facility 09-03-2022 Evaluation note Encounter Date Diagnosis Assessment Notes Aug, Other specified postprocedural states (ICD-10 - Z98.890) Aug, Other intraarticular fracture of lower end of right radius, subsequent encounter for closed fracture with routine healing (ICD-10 - S52.571D) Aug, Cubital tunnel syndrome on right (ICD-10 - G56.21) Discussed patient appears to have some element of cubital tunnel. Instructed on stretching exercises of the elbow, wrist and neck. Based on her variety of complaints, discussed that she may have multiple issues going on. Could consider cortisone injections to be ideally therapeutic as well as diagnostic. Patient opts to continue formal physical therapy for her neck and elbow, and will consider further treatment if no improvement. May specifically consider MRI of the cervical spine. Aug, Impingement syndrome of right wrist (ICD-10 - M25.831) Radiographs reviewed with patient as slight ulnar prominence. Discussed this may be causing some element of impingement/uln ar abutment. Instructed on use of cock up wrist splint during activities to decrease strain of the wrist. If discomfort continues, may consider cortisone injection. If conservative treatment is not helpful, may consider surgical intervention by Dr Nye, orthopedic hand surgeon. [employer] Other Clinical Note 01-01-2022 Note Date & Type Note Facility 01-01-2022 Note PROCEDURE: XR WRIST RT MIN 3 V COMPARISON: None. HISTORY: Pain of right wrist FINDINGS: BONES:Remote distal radius fracture fixed with a volar plate and multiple screws. Remote ulnar styloid process fracture. No acute fracture or dislocation SOFT TISSUES:Negative. No visible soft tissue swelling. EFFUSION:None visible. OTHER: Negative. IMPRESSION: Remote distal radius and ulna fractures No acute fracture Electronically authenticated by: LAKEISHA MONET Date: 2022-01-01 17:45 [facility] History general Narrative - Reported 12-26-2020 Note Date & Type Note Facility 12-26-2020 History general N arrative - Reported Type Medical History endometriosis Medical History ovarian cysts Surgical History laparoscopy x 4 Surgical History ORIF right distal radius 12/2020 [employer] Other Evaluation note Note Date & Type Note Facility Evaluation note Diagnosis Acute pain of left shoulder documented in this encounter [facility] Work Phone: Evaluation note Note Date & Type Note Facility Evaluation note No assessment information availa [facility] Work Phone: Hospital course Narrative Note Date & Type Note Facility Hospital course Narrative No data available for this section [facility] Hospital Discharge instructions Note Date & Type Note Facility Hospital Discharge instructions No data available for this section [facility] Progress note Note Date & Type Note Facility Progress note No data available for this section [facility] Summary Purpose Family History No Family History Records Found Relationship Condition Age at Onset Recorded Date/T kenn daughter Presence of implanta ble cardioverter-defibrillator (ICD) Unknown Hypertrophic cardiomyopathy Unknown Advance Directives No Advanced Directives Records Found Advance Directive Response Recorded Date/ Time Advance Directives No January 04 5:39pm Chief Complaint and Reason for Visit Chief Complaint S52.571D Additional Source Comments INFORMATION SOURCE (unrecogn ized section and content) DATE CREATED AUTHOR 03/10/2021 Caylacassandra Garcia Bravo spirenzo DATE CREATED AUTHOR AUTHOR'S ORGANIZ ATION 04/13/2021 [facility] DATE CREATED AUTHOR AUTHOR'S ORGANIZ ATION 01/07/2022 [facility] DATE CREATED AUTHOR AUTHOR'S ORGANIZ ATION 09/04/2022 [facility] DATE CREATED AUTHOR AUTHOR'S ORGANIZ ATION 10/14/2022 [facility] DATE CREATED AUTHOR AUTHOR'S ORGANIZ ATION 10/07/2023 [facility] [employer] [employer] Care Teams (unrecognized sec tion and content) Team Status: Inactive Member Role Status Dates Aubrie Mcduffie Primary Care Provider Active Deejay Larios MD Attending Provider Active Team Status: Active Member Role Status Dates Aubrie Mcduffie Primary Care Provider Active Goals (unrecognized section and content) Goals may be documented in a n alternate sectionNo Information No data available for this section REASON FOR VISIT (unrecogniz ed section and content) Increased Right Writ and Canela d Pain FOR RECORDS PERTAINING TO PATIENTS WHO ARE OR HAVE BEEN ENROLLED IN A CHEMICAL DEPENDENCY/SUBSTANCEABUSE PROGRAM, SOME INFORMATION MAY BE OMITTED. This clinical summary was aggregated from multiple sources. Caution should be exercised in using it in the provision of clinical care. This summary normalizes information from multiple sources, and as a consequence, information in this document may materially change the coding, format and clinical context of patient data. In addition, data may be omitted in some cases. CLINICAL DECISIONS SHOULD BE BASED ON THE PRIMARY CLINICAL RECORDS. [facility] [employer] provides no warranty or guarantee of the accuracy or completeness of information in this document.
[2023-11-11 13:10] LABS: Basophils Absolute Auto 0.1 10^3/uL (0.0-0.1); Basophils Percent Auto 0.7 % (0.2-2.0); Eosinophils Absolute Auto 0.3 10^3/uL (0.0-0.7); Eosinophils Percent Auto 3.3 % (0.9-7.0); Hematocrit 42.7 % (36.0-48.0); Hemoglobin 13.8 g/dL (12.0-16.0); Immature Granulocytes Abs Auto 0.02 10^3/uL (0.00-0.03); Immature Granulocytes Pct Auto 0.3 % (0.0-0.5); Lymphocytes Absolute Auto 2.9 10^3/uL (1.2-3.8); Lymphocytes Percent Auto 39.2 % (20.5-60.0); Mean Corpuscular HGB Conc 32.3 g/dL (29.9-35.2); Mean Corpuscular Hemoglobin 31.5 pg (26.7-34.0); Mean Corpuscular Volume 97.5 fL (81.0-99.0); Mean Platelet Volume 9.7 fL (9.5-13.5); Monocytes Absolute Auto 0.5 10^3/uL (0.3-0.8); Monocytes Percent Auto 6.1 % (1.7-12.0); Neutrophils Absolute Auto 3.8 10^3/uL (1.4-6.5); Neutrophils Percent Auto 50.4 % (43.0-75.0); Platelet Count 270 10^3/uL (150-450); Red Blood Count 4.38 10^6/uL (4.20-5.40); Red Cell Distribution Width 12.9 % (11.0-15.0); White Blood Count 7.5 10^3/uL (4.0-11.0)
[2023-11-11 13:23] LABS: Bilirubin Urine NEGATIVE (NEGATIVE); Blood Urine NEGATIVE (NEGATIVE); Clarity Urine CLEAR (CLEAR); Color Urine LT. YELLOW (YELLOW); Glucose Urine UA NEGATIVE (NEGATIVE); Ketones Urine NEGATIVE (NEGATIVE); Leukocyte Esterase Urine TRACE (NEGATIVE); Nitrite Urine NEGATIVE (NEGATIVE); Protein Urine NEGATIVE (NEG/TRACE); Specific Gravity Urine 1.025 (1.005-1.025); Urobilinogen Urine 0.2 EU/dL (0.2-1.0)
[2023-11-11 13:30] LABS: Urine Microscopic Indicated YES
[2023-11-11 13:33] LABS: Alanine Aminotransferase 20 U/L (14-59); Albumin Globulin Ratio 1.1; Albumin Level 3.7 g/dL (3.4-5.0); Alkaline Phosphatase 81 U/L (46-116); Anion Gap 11.7; Aspartate Amino Transferase 17 U/L (15-37); BUN Creatinine Ratio 17.3; Bilirubin Total 0.6 mg/dL (0.2-1.0); Calcium 9.4 mg/dL (8.5-10.1); Carbon Dioxide 29.5 mmol/L (21.0-32.0); Chloride 102 mmol/L (98-107); Chol HDL Ratio 2.2; Cholesterol 151 mg/dL (<=200); Estimated GFR (African America >60 (>=60); Estimated GFR (Non-African Ame >60 (>=60); Globulin 3.5 g/dL; Glucose 133 mg/dL (74-106); HDL Cholesterol 70 mg/dL (40-60); Potassium 4.2 mmol/L (3.5-5.1); Sodium 139 mmol/L (136-145); Total Protein 7.2 g/dL (6.4-8.2); Triglycerides 36 mg/dL (<=150); VLDL CHOLESTEROL 7.2 mg/dL
[2023-11-11 13:41] LABS: Bacteria Urine MODERATE #/HPF (NONE SEEN); Cast Seen? NONE SEEN #/LPF (NONE SEEN); Crystals Seen? None Seen #/HPF (None Seen); Mucus Urine NONE SEEN (NONE SEEN); RBC Urine 0-2 #/HPF (0-2); Squamous Epithelial Cell Urine MODERATE #/LPF (NONE/RARE)
[2023-11-11 15:58] LABS: Estimated Average Glucose 120 mg/dL; Glycohemoglobin A1C 5.8 % (4.5-6.2)
== END 2023-11-11 12:28 | disposition home or self-care (01) ==
LOC: LAB 12:29
PROVIDERS: PCP Nurse Practitioner; Visit Provider Nurse Practitioner
DX: Z00.00 Encounter for general adult medical examination without abnormal findings (principal); R73.9 Hyperglycemia, unspecified; R82.90 Unspecified abnormal findings in urine
CPT/HCPCS: 36415; 80053; 80061; 81001; 83036; 85025; 87086; 87150; 87186

== ENCOUNTER 2023-11-13 07:28 | Outpatient (OUT) | payer OTHER, SELFPAY ==
--- NOTE | 2023-11-13 07:30 | ECG_ITS ---
[facility] Test Date: 2023-11-13 Pat Name: LISETTE CAVANAUGH Department: Room: - Gender: Female Tyre Fitter: : 1970 Requested By: LEONARDO VINES Order Number: [id number] Reading MD: DENISHA WESLEY Measurements Intervals [place] Rate: 65 P: 87 CT: 147 QRS: 82 QRSD: 76 T: 90 QT: 415 QTc: 433 Interpretive Statements SINUS RHYTHM RIGHT ATRIAL ENLARGEMENT [0.3mV P WAVE] No previous ECG available for comparison Electronically Signed On 11-13-2023 20:26:53 EDT by DENISHA WESLEY
--- OUTSIDE RECORDS SUMMARY | 2023-11-13 07:30 | XMS_ITS | CCD ---
Author Organization [facility] Care Team Providers Care Society Reporter Name Role Phone Aubrie Mcduffie Primary Care Provider AUBRIE MCDUFFIE. Referring Unavailable AUBRIE MCDUFFIE Primary Care Unavailable AUBRIE MCDUFFIE Primary Care Unavailable AUBRIE MCDUFFIE Referring Unavailable JONATHAN CORREIA Attending Unavailable AUBRIE MCDUFFIE Primary Care Unavailable MITCH, RAÚL S Referring Unavailable MITCH, RAÚL S Attending Unavailable MITCH, RAÚL S Attending Unavailable FROY AUBRIE Referring Unavailable AICHHOLLana, MATERIAL FLOW ANALYST AUBRIE Admitting Unavailable AICHHOLZ, MATERIAL FLOW ANALYST AUBRIE Attending Unavailable HERNANHCHRISTIANO, MATERIAL FLOW ANALYST AUBRIE Admitting Unavailable AICHCHRISTIANO, MATERIAL FLOW ANALYST AUBRIE Attending Unavailable DR LAKEISHA MONET V Consulting Unavailable FROY, SHANTHI PATTERSON Consulting Unavailable Aubrie Mcduffie Primary Care Provider MD Deejay Larios Attending Provider [phone] Deejay Larios Admitting Unavailable Deejay Larios Attending Unavailable Aubrie Mcduffie Primary Care Unavailable Deejay Larios Unavailable AUBRIE MCDUFFIE Primary Care Physician [phone] SHEBA FRANZ Attending Unavailable SHEBA FRANZ Admitting Unavailable SHEBA FRANZ Attending Unavailable SHEBA FRANZ Admitting Unavailable AUBRIE MCDUFFIE Attending Unavailable AUBRIE MCDUFFIE Attending Unavailable Allergies Allergy Classification Reported Allergen(s) Allergy Type Date of Onset Reaction(s) Facility (1 source) some foods Propensity to adverse reactions Unknown [facility] Other (1 source) soaps Propensity to adverse reactions Unknown [facility] Other (1 source) perfumes Propensity to adverse reactions Unknown [facility] [facility] Other (2 sources) Penicillins; Translations: [penicillins] Drug allergy Unknown (qualifier value) [facility] (1 source) No Known Medication Allergies; Translations: [No Known Medication Allergies] Propensity to adverse reactions (disorder) [facility] Repository Medications Current Medications Medication Drug Class(es) Dates Sig (Normalized) Sig (Original) acetaminophen 325 mg / HYDROcodone bitartrate 5 mg oral tablet (1 source) Opioid Agonist Start: 01-04-2021 take 1 tablet by mouth every four to six hours Hydrocodone-Acet aminophen Active 1 TAB PO EVERY 4-6 HOURS 20 January 04, 2021 albuterol HFA 90 mcg/inh [...] Range Facility Coding Summary.on 10-11-2022 Coding Summary. CD:[id number]:[id number] G h0bWw+PGhlYWQ+ZG0ZIXU hA38wjSXthE1vE1HIAZyT SywgQVBQTElOSyIgbmFtZ R9vhRPyCQXp IC8+UV6mYNAcIjoukKBvf 4Y8qZS9H38bfi5rOXezzO B2WKEfSwFoczoxi2ssoEj 6IDcuNmluOyBt SFPluV15CCM1uF91Mp74l XJgaZEbg9jypAk6PxCcHI OpFMB2yEdwFUunt3FwCUB wZ67euVYpa2D7 WKDpaEzusFPbGxNffBD9j V4oFAmofabxh1musbxpFj c0uw87sLMar0C7qYY4E9F rpvV1NIZyqUUl UchbmDCJqP9hjsmqi0qkk ejxMnLzKEIxYZk5SZs8NA AxbNwmQyEyTE11ZEU8EMV dmsBnC6RjKNKb jFvxXpW9o8I3Nm2UZ3LVW hqhK5FYGRGYWTpguJD+PC 19aq30Z4MsJvtuUsl0FZC cKVU4dWL7zT2c IVLeOQlkl3S9uFJ1D4Rku kWeqt6iy6jiIIThOYcaZ0 2izYCco0H6VBGjsJR4KGS kfQveNjXrvR13 Oyc+GUTakSsro9TcRshbh 5glr1kycZj0YoucCVYpjp KhtLhvEWH4w0VmOl0hACZ qpXF1eSW0oE6u HwZrYiL5EYzkA299MfHjd OOeHdefR24qD0HtwJP+PH UzAxs4NBNnvAjvBD3tQ7N hZGRpbmctbGVm yPspCK5oDQDrbjqcNOYny B1gOAGiE1b6WeGmEiT5IS jzC5LkOGAjaeupYi85jR0 oVkFoDiV7XLzb Z5PkdoM0ZAJrnVMcLWkvF RR0R67kx2P5NPQjEFTuMY Z8zOV7bF9dnUnretsjwUH mdDsgdmVydGlj EZstREciM113YIPplPpuZ kNvZGluZyBEYXRlOiAgMD MvMTcvMjAyMzwvdGQ+PHR vNOD5nRoqVNJg aDMmRFgiJd1isGjaiCssK I5uCNQnlmfsVTWvuQ0wQI RgbWOzhOmuDK8dMKYfxyo fm272MpMbLIS1 UIYoqGZxQ7CfwW0tMxVfB QBkOLDsG7ZrzRTgGElgW7 70GKexSyM2NJEzpzOmT1V sLWFsaWduOiB0 u0Y1Uu6Rf6DyezyiW4Ivo MAbAzVqRqttUNg8Z0FoJy wvdHI+RA03ZOWkOF44FSh 5DCK5jHjgWPgj BFPlG1GeiQ3sEfLhZCPfO GRkOyc+PHRhYmxlIHdpZH RoPScxMDAlJyBzdHlsZT0 nYi4tAVXeYVKm kIawqIHoUcMnq4moAKAuC SgsMT7rtWrxI7NvsYW5DN Fqn9j6Fn44P41eO5XhvZE +CHUcsPJ6iDR8 hH3hSiSeSqC5ADejW384V hEtePTmAnrkd4ble0opkA g7OaH7MGVfwdFmuMyiENB 7z3ZeJd47Z99t IHdpZHRoPSIxNSUiIHZhb Phbdp4cjW9sJh5+PGNvbC K0tEI9wD4qPfTgJmC3UBz lZ336RhNhyGMd Xfxun5qio7fhlJl7HsDdL UKgzkIfaAkmWUF2u8ZpJp 32C5McwSfyn7DaVfa5vy3 2sKYjs7A1kML1 X6FgVXSuwymipCCpvEspR X3zVZIqckvuJXAcuI5vKI DvB7g6TwBmTaW1MMsjK4U gdbX1BZEmjVRo NAQipPORuD3egahai6sia aujUqWsTLXlHWq4WWk0FQ SxoTqoSwTaKPS8QcK8TNO 0pVBuiN5cuZhp qbxkuI1mGww+MBK9pZYzx ZTJVP6nBydtwRP+PHRkIH Q1oBbbSPcnVACeyH1qAFI fE4i8YzDxZaK1 APlxM9CszwY3UEZfyYPdQ QEuyTJSaT0slkhrm1mzgt lrGxSwCFGvFSu0MHs9JYN saWduOiBsZWZ0 AfF8YRC3zDRanW1kcMvzq mumlD9wMbv+QmlydGggRG S2IKk0B0IsLxu1ZXZvpHg mPL7vpPJsGThu Lt5jwDqzwEfuUA0gHBNin zjhy297LjMnk2dtEEUwfU YfKBxoTWA1K47mj6R8IMJ zRDMbGIR5nII6 vZ6lmNdasccptIFmuSbza hZbsWnzRSgmBQnaG214ZR ApoPnbJcCsKHv3H8VdUir 5LWRodKxrGL8s pQXlHOrzZw4sfKabnHiwI I7oYDFbqajfc486YnIgx8 xkCDXdaIHgOUvsURS1W87 nk5K0HZBiSUXu XOL2zJX4lH3qiIfumbsob GVmdDsgdmVydGljYWwtYW dqD076AFIqpAotOqZzmWh 0U7MrNzh3FAEw wHffQF5ldKTnZKxuUo2vd DxzpPcyPS6qKFYvqlxrq0 84LvKhy4tlULHzrQIkBRr nSEJ5R40cw9O0 HKPqWNScUQP3pMS2zH2dp GlnbjogbGVmdDsgdmVydG apLYgeCQuyR019TNJwvBg nPlBhdGllbnQg ITtnKJf4L1RpWffpzDJ+P J53OGRzRX33lOYhqQTdq0 nbwJh8QiVpJLAlGKA9kMm cNVhwl6KyDOTn K58awKLju4O7ZZAheXagg SHwDyDzaEK3vC4yDYbhqq uox9oafhojLdgqd5xavc5 5sE88X21lIRin ZHRoPSIzMCUiIHZhbGlnb l9ypH1lLd2+ZRJoiQP5nN V1hJ3oUUMwNwY4GEpnY84 9InRvcCIvPjxj e7jof3sxaEl3RsG8FSBqf lGwmXtuAQS4v8MfEo97Q5 9sIHdpZHRoPSIyMCUiIHZ vrQxxqg1ayP6n Ii8+PKYooOX3kXF3jO5fN uZtSuV3JQigS462YzWjqS IaCfdaE72yL4LaiPR+PHR oPpn4UWOynBsn HB1kaZBiWUmqZj8xGPD8Y pRzYnLjIStrD8YnKAKasj enyxlirEL9HMIhWWJewO5 9Gv6fhGlnGTGi rSPPtE2pxyrqf3ttsiccT jGkJUCrTBo6DJf1FDFooA dfEfLdEJN1QrZ4ZJF9mME jyJ3wfYlxxelw eI8oF5LcYHGkqbgaQo38t D4cWaXzUhM7UXwyVwv+SE jCO9UeROtDOu5HCIY3Z2P iRbf8PZBxiGab GK7spXGpCQjuKx6zhWjef NecLC0oWEHledpkTYYdxL 9vHATrcDSdySleXR3uYRW ebrhjd399BbTv OAR1EYSsoJIvV3SufQ5tF vDvODImFTXjI2DbcHCdJS isM235NBesUjF2LMEsorE xN7MlDUIfkJwu IpT1c7Q5Cd2rAW4cTU2vK ByuRF24TZ43eTAao0R2dQ X2C9EmODVezvuxboajkYD 3DTEePDKosK01 sNSlFLvzKn2ge6S1a886W DTyWJQczZ61Pk8qrVvlVB WnpRBPsQ0nwahhq7fapio gIzAwMDAwMDt0 PBo7JBOqaSsbPoPuASR1G jY2WRA1jDVaiU3aqCkulv yxvU5qQqa+NTEgWWVhcnM 3S2XwBoo7FOHf bGckJM9duLIzCFklZw9yb VxjhQeaWK1lWRWjtwgbIH KemE5kSPLpyIQdxVgmFW4 rLFDxhvnzg852 ZkYiQME9RMDudHMsF2Uaq Z5ePcVrERUnSVQuL0EnxS EkWWgtY517QZcyUjN4BHL rpiKiA6CpZXCy kTuuKdX9y9R8Zp2PHU4cg PJ5T9UuGmy1PQArqQekLI 4kaHShLYexCa2vbEitrDn hXF2yIIHvduqu HNBqzF9hQAYbpXSljOkjY L2dLHNlbpjvp844PsTcQI E8PASalCXyB5HnqD6qWnU wSGNdVPKcX6Ka aJJoAOxaR886KMclRuU5K HSqwvUfB8VvFDQlxDcvAd H5i2R2Fq4YuJAqUIAzPR0 5UT58YK26O7Jl PjwvdGFibGU+PHRhYmxlI HdpZHRoPScxMDAlJyBzdH ehDT4aYs8iFRKpGHGrdNj bdTUrZiBnp2vh IREcCQcpVK4qyCojA9Pox YX6ZLHui8x8Cb93V04oF1 JvdXA+LFIjaOJ9hYW3jS4 wEmHqJzD9XOoi D333VpJbhCWhGbora1vky 4xknJo3JjVnIFVwgwKexX bkQZV3z0PiYs54F56fBNa pZHRoPSIyMCUi INKaoJtaqm5hyN4yIj8+P GRegXH5eZB0yE0mPrZqOx H0WLcvV086TjHimPVcQhr zO16vC9RpdHP+ DZAyCzr5UMAhdWchUP0ib ZCdCPfvAy2hJYX4LzYwVv UaWFriG4PpLQVltqrkakl riCF8TZMsBEFs qO04Hc2ruCfwMp5hOOQuT QW9ROHkwCXaS9EcrX5jPs TuPPIbRWHaL4UudYSvPGj sI855FXyzPoW0 UHCazmGlA8OlMRLjxElpG tK8u5M5Fj3NgYqbsQOyAX 5vHjRhFUg1P1WfXlz5ZQW dvZnlXX2gaEMi LYhuJy9oiGsedXieBD3uH UKfistjo597BuWuw0wbDC FpuSUjEFzgSPH7V95ww8F 3LZEsDKLzUAR6 dPQ7yK3ngMecgzsvmDKqh DsgdmVydGljYWwtYWxpZ2 38MZDqmLvjTnDKTex2G9N uEmr2VJGruJyd GM9diUFtJZarJi8kjJzbk BhnNP1iXUIefcylk748Cm Ips8apYVCpvUBoBCrtLAV 3W22mf3X6TBJc UGTqSYN8fMB2eH0kxKzek jogbGVmdDsgdmVydGljYW umHAniO614YZQsdAeyBm0 DPsf5G7DlAnk9 HOJxtGabHV8lcMGwNLvdB i8jfWgjkLofBW9tUCFnqi kka112XdBli1shZCTffSW hMMezYLT6Q40q u4Q0ZYDiWNUmQBG5gUB1g Q9ghNwvvwgziOBkxTjbge YuwMxwTPxdNUjsY404LMD vcDsnPlBheWVy OjwvdGQ+EC00yd11E4IkP aejOjm4SLWgKBB2aEV7oW 9pQGEsNMwpb8Q8qST2X7J jgpAatt8fg8vh YXBz (more content not included)... Normal [facility] Estrone Lvlon 10-08-2022 E1 [Mass/Vol] 26 pg/mL Invalid Interpretation Code [facility] Comment on above: Result Comment: Rang e Adult (Premenopausal) 27 - 231 Menstrual Cycle (1-10 days) 19 - 149 Menstrual Cycle (11-20 days) 32 - 176 Menstrual Cycle (21-30 days) 37 - 200 Adult (Postmenopausal) 0 - 125 Performed at: [facility] [address] [id number] MD Mason Kidd Performed By: #### 1 [id number] #### [facility] [address] [place] [address] Consent for Treatmenton 09-25 Consent for Treatment [id number]:127 Normal [facility] Physician Orderon 10-04-2022 Physician Order [id number] .[id number]:127 Normal [facility] XR wrist RT min 3V*on 2022 XR wrist RT min 3V* [facility] Main [place] [address] [place], [place] [id number] XRay Report Signed Patient: Nirali Cavanaugh MR#: [id number] 5 : 1970 Acct:[id number] Age/Sex: 52 / F ADM Date: 09/03/22 [place] [facility]: Type: [facility] Attending Dr: Deejay Larios MD Copies [...] Emma Morris M.D.09/03/2022 10:22 AM Dictation Location: [place] [address] Transcribed By: [facility] 09/03/22 1022 Dictated By: Emma Morris MD 09/03/22 1021 Signed By: 09/03/22 1022 [facility] Cortisolon 08-30-2022 Cortisol [Mass/Vol] 20.5 microgram/dL Invalid Interpretation Code [facility] Comment on above: Result Comment: Nirmal isol AM 6.2 - 19.4 Cortisol PM 2.3 - 11.9 Performed at: [address] [id number] PhD Marely Enriquez Performed By: #### 1 [id number], [id number], [id number], 0587180, 88664709, 7060788, [id number], [id number] #### [facility] [address] [place] [address] DHEASon 08-30-2022 DHEA-S [Mass/Vol] 107.0 microgram/dL Invalid Interpretation Code 41.2-243.7 [facility] Comment on above: Result Comment: Perf ormed at: [address] [id number] PhD Marely Enriquez Performed By: #### 1 [id number], [id number], 5111502, 0298677, 73147219, 6499957, 25624679, 2354356 ####[facility] [address] [place] [address] Estradiolon 08-30-2022 E2 [Mass/Vol] pg/mL Invalid Interpretation Code [facility] Comment on above: Result Comment: Adul t Female: Follicular phase 12.5 - 166.0 Ovulation phase 85.8 - 498.0 Luteal phase 43.8 - 211.0 Postmenopausal <6.0 - 54.7 1st trimester 215.0 - >4300.0 Ryan ECLIA methodology Performed at: [address] [id number] PhD Marely Enriquez Performed By: #### 1 [id number], [id number], 8655190, 4490334, 41545384, 4778818, 09207255, 2026292 #### [facility] [address] [place] [address] FSH and LHon 08-30-2022 Follitropin Qn 115.0 m[IU]/mL Invalid Interpretation Code [facility] Comment on above: Result Comment: Adul t Female: Follicular phase 3.5 - 12.5 Ovulation phase 4.7 - 21.5 Luteal phase 1.7 - 7.7 Postmenopausal 25.8 - 134.8 Performed at: [facility] [id number] [place], [place] [id number] PhD Marely Enriquez Performed By: #### 1 [id number], [id number], 4098640, 5053608, 10166965, 1129999, 54400527, 0215492 #### [facility] [address] [place] [address] Lutropin Qn 52.4 m[IU]/mL Invalid Interpretation Code [facility] Comment on above: Result Comment: Adul t Female: Follicular phase 2.4 - 12.6 Ovulation phase 14.0 - 95.6 Luteal phase 1.0 - 11.4 Postmenopausal 7.7 - 58.5 Performed By: #### 1 [id number], [id number], 0747546, 3018767, 07168767, 7731640, 85304185, 3916253 #### [facility] [address] [place] [address] Testosterone F&Ton 3 Testosterone [Mass/Vol] 46 ng/dL Invalid Interpretation Code 4-50 [facility] Comment on above: Performed By: #### 1 [id number], 261361026, 6050691, 4354139, 42462245, 9202556, 26852702, 7402543 #### [facility] [address] [place] [address] Testosterone Free [Mass/Vol] 1.9 pg/mL Invalid Interpretation Code 0.0-4.2 [facility] Comment on above: Result Comment: Perf ormed at: [facility] [address] [place], [place] [id number] PhD Marely Enriquez Performed at: [address] [id number] MD Mason Kidd Performed By: #### 1 [id number], [id number], 2975103, 1257650, 06419142, 7047263, 57154289, 1253241 #### [facility] [address] [place] [address] Coding Summary.on 08-27-2022 Coding Summary. CD:[id number]:[id number] G h0bWw+PGhlYWQ+KR4DPDI zE69ibAZwwX9EI8qUEA8S JSQXTKICTD5BYU0bsNW4V ZxdU8YwymDb CktotWEtVF17ZAg4NCU7k DrcDCoqbD4haQRjQ1z7Ab IvQN33vP44NHauSSEzRpB 3LjZpbjsgbWFy P6bdMeVzsRHgYzu+PHRhY mxlIHdpZHRoPScxMDAlJy HurWgeNW1rHq2sSSMyKOF vbGxhcHNlOiBj w3niXSDeNRtwTN7vaBueI 2TelYB6IZVpt5r5Eg28hH I+TIHqCKV9hUhfADjhl31 5OhPwg9suWZA6 bZJdJCdvUWC3K86ra5K9S NGnEXKiAUZ5bGU8bV7vlQ ycmxfeH1SvjAMiFyE4CLK 0iSExkM7xjSix omxoxD3lFay+V45LNP7XO MOXOZ3JMyx7T5UoHegzxN I+JL05NCNyOJ03kJUggCY xc4lzjRk8LvOw VUYvDDO8fSieYDztl2KfR UJbY44ovDKmm0I4OXLtrQ hfvDTyZxSymAG9xU0fNBh stysyh3tjcgxw Vtlur5efhm17iP13J36hM UlsGLLcLGM4TZZsMUAzuS rjwv1jxS8bYy9+SOhfr6z wz8tguCy7QwUr IQWxneXvtDgjFTS9m3WgG p76F2GgzHamf2XlAbu4zb 65nLCda2W2pTI9HNyxDCN poN9vCUkkUiO5 HPSeAbLadE64oYHvTArbW s6neEsksNfrNF5lFETsmu yfRHHbxC0oOUAglNIuqPs kTL7pYCZtdmbd g461GlQpKDL3COGpnAUbH 2KkiB4mEtOeVPKkFAZxC7 ZrxMReUQklA360YPwfBmE 8MRNfsbDyK6Zx HLWccAqmSsW3b4O9Zl8Jq 7UioyhwBYF7UWjpXLMaKl NvZmGeSfH2I5TbNvq3FPJ prCsuRY0bY2Ac FPOxeylmzfcgyMI2QVJuL YUvjX80fUCsICcvXk9ig4 J7x514RPHuHOZmoE27Qi9 udDogMTBwdCBU eH1qqhvju1tsyyctKqHfV XNiIAd6VWq6IYYvaWcbYl KuHGA6EmW3CIN0tOLygR7 xlQqdyfigtG0k Oyc+S28oaJ5cVDS4DBK5c cohFDOqtfHtIX20TT22Q8 RyPjwvdGFibGU+PGRpdiB wdIuhFM8cOrUm m4fyn6HeSOfuU1OdXYJpS FzbGmj4HURqTSI6lRU9oK 4aZYTpXYpet0Y8eKV2Z7L wcsYyer0ku7mv DKAtGYhtA32zwRGze4F4J EMluKT0EVHczVrrKjChjC 93Oyc+TWObcYkao9EkUtb fw5hsk7pwnXh1 RrCuBMCxatOdfVdnEPT0u 6FvZw08W51yOSrgZBWxCP ZrVRErWQVykYaixz9tgZ3 wIi8+PGNvbCB3 mRZ2mX1zQYAoWtC4EDsvW 325UdAooXEcDuvvs3jst6 ucmWi5JuHdAAMminJhaUd qAUI6v0OlLa66 J73jMTlePLMtHQOsDFUxE WQpyOnvws6obS7eIa1+PC 3ca6wwxx87jA10sHW+PHR fGVP1nYqkEPfj CBCkeU9dYMfiLyP7TLUzD aHhmV36vFUkVOxqPi2ykR caaIujQM7pFZJlmsitg36 1XaYfj0yjCWFh uCYsEHhoAFW7R47bb4W2V IJwKJGjQYW5pOE8hG4shW lnbjogbGVmdDsgdmVydGl cAYcrJZjjE878 IHRvcDsnPlBhdGllbnQgT zVzGTy0K9UzIul1CQWaqL mzJO8fzOFmFOgxEa2knAf veZtfHF9aPMPi pibbp236FhMew0usOYXpd KJqQHpfJFG4K55nh4U2OS NwMACoNLK1lRR2wU6mnOl nbjogbGVmdDsg twHvbTgbEKspAXaqQ240I HRvcDsnPkJpcnRoIERhdG J3MC90JE09lZQoj3J1eQN 7K9KoKHYsnvir zntibPI8MJShQNUtyX51K p3jwEatVa4zWERkOUI0ZG FqlKTyU3EhmN5kNqRzBNW wFEGtR6FfcWYp NWinV493JBfbTnI1XFWee wQfD3NoDAJdnGgzBkH1g0 A7Zg4HH0G4WE63KQ66mBU da4L7wGU7O0Wd GKAyabheozfoiIR1JPDcA YTxuQ71Mr2kqHvqXe9hTR UyRVM3GMEaxOZfM6VddK3 yOiAjMDAwMDAw W2MmeEZrMRcaD399UZuvC wX2NPGzwtKdQ7LgBSSbkV edRkX3g4N7Ma9LCOf1WK5 8KX87sRZsc2C6 yJA1A8CiIFTvhncltqjux RQ6DYZaVBSfcW98Cl4ynT ewGw5aVESsVDU4OFEzoNS tV6XvbJ1pFcQl TZFbIVFqC2DhsPVvWUuzV 358FUhvAkZ1IBInvfAbL8 JmBEQlyPzqHdG8l2M7Kt5 JZWPtSP31DKM2 mSN8ZB31OB43P5FbNsnfc GFibGU+PHRhYmxlIHdpZH RoPScxMDAlJyBzdHlsZT0 oDu3xTXDpYLEn cLpiwDDnCxIcj4ndVOFbY YyiVG7tiAznY3VtlKW7WN Dqr9g4Ag08D96vX5DalUG +PXJwbQT6xXF4 mO2tPwViMsG3OVwaO858M vRzgHDoCcjni7mcf0mfbD c9ZvA4OTGtavQyoPgaYKO 0w1FfEx85J38z IHdpZHRoPSIxNSUiIHZhb Hyodi0vnO1lXm2+PGNvbC M6pYN5jB0cFpFrAvF1PDp oS619RjMiqELb Ejizg2iyo6sfaVp5EbXmP XVmsyFqnLfyFRZ6p2PyUk 89I9ZmjFqnn6UaSuq6cy8 1kJGjp8O1vHL8 R0DzQXTsddrbaDWufYthQ N1tSPJzmyzuQAQagL2gBB SzV1p8AqHyVhF5YJnkK8G ilmR2JQDfjSSk WFfrMWO1Y53zb5B5OVXeC IWoPES3cWZ4fA2awMxumn ogbGVmdDsgdmVydGljYWw vWFcfJ070ELRk pBnfYSHtoX0rJEMbiSKnn BrxYO3cFUUgdafrYktLA5 fEWBSKQA5VSOBPDP49SL4 0dLEkp3D7hUX1 G1XkZQVhbhvyeatusLS6K ABpOQIydT00qILoLSokGe 6ia5Y2p464UYLeYHIanJ4 9Fs9loZndLIKj zELLhM8bnvtsn5rmvkjcA zIaZWZkGAz3VLm9FWGqzT zvEhMvLUQ5NsT6LBK2iOG ebD5urEcrcqaq wH9xLcf+OYVpOJiyVBy1W TwvdGQ+DCOdTSV6hWnkFG glXGYjlQ0eFUVzA7l8RkG pYmP9AQluT1Nt AISjmpsaDf06wC2aCuIwW kS9VTaeU3VjlfM7KNBztY NsKMpyTVO4F03je5G8MTO zORIoRLC0sSI8 uS4jtHzlqiumxPSgwKrcu xRjeMbqFHzqBDfrI851RG RvcDsnPjUxIFllYXJzPC9 8TE05dYDgv3I4 xLI3U9JoOUMmcbsgxvobx OT9BVBbYRVzuZ01lQOqGK nlIy1wu2G9u151ZDFmABY ymT00Of0flQjp PWQsnYLAjH9ujwfqx5lbq mtaIzUwHKKvCBx9CVz6TV OwhKiyWoEkFWB8FuS1IZR 5oJJxkK0hwTms nsbjtI5lYju+RmVtYWxlP J78XO26hVGxu0S1lZX9O8 MbQSJawdtlwlejrHZ9GMK mDFQrxM18zEWa RDejNc6fl4E9n869IABdF RSdjL90Bz0kjYkqGHMgkO VAwH5pfpeur0aziyjvGkM aCUEpEQt1BCb5 YCDltZncLvCsQIQ4TxM2Z LT4fRXwyU0msMqaomfcsN 9wOyc+J1V8cVX6tINbpMw vdGQ+CO61gt71 W0EeVjdeAua6MJYlFSR8r MK7tC8vHYEjYNnbs7I0wW V3X3HdpeVvtk7og4heOFA fLJrvF79tdAYh e4W2GTMyoYJ3DXUixOiaO dRgxL95Wfl+PGNvbGdyb3 BkFcttr9mwl3ojzDa0FvS wJSIgdmFsaWdu UHR9o7JgTv75U87yGUzhK HRoPSIzMCUiIHZhbGlnbj 0onN6eLi2+OTGiyKY1yBD 4oW2eTrRpEwD0 CImsE991EdKzzPMeNczfk 5ljd5qtoMd0QbYbRYDggd UpvOweXBZ5t3RkPj78O5Q faDhqg2NxZab0 od15tWEaa5U3hIM4D2DuG NQjrsownFYjlNxcDL8zCP HmxqhwKSSkiM5vUNHtN3m 7UqBxUzK1IOeq L1DdbqE2OWXmzZYpKQZdp HNXxL4rkqkrt2rkircbDc YzYLExQDk8YYg5GEBxiLq fYlWrHVR3AbF4 WXK6tMCryE7njXhxhqusp G9wOyc+DTh7l5gmeFEuXD 0yiOZ6MO35PJ95zFKjz2S 2oGK5X2ObCZCh akkbwoljjFX6RIXgZFRdd D20Nr5bxItxRp9pZRJcIF V4WBJqyDFwY1AnyX6aJeX iHLBoXHDaB9Hc yJVrQFjyK466RPtmOwF9S QFaumDzX0OsAOTagOdsXc N9u4K4Vl3UFU17EL73OI0 2lQOwc7T7xTF2 I9HeZWNlvblkyegumTH2D LDrPWJegP26Ax0sgDhoPk 7bFWVxSPE5KMJotFJwQ5Q fjC3lOrAaLAQu UKTzW7UcjBVjMPkjA824Y ZtqYfM3DSZfedZhE9BfOF KevIayUpW5e2X8Az3GZs9 9DU87SU04qJXl k0W8uCF9H1WdDKAqkxlwp imbuGP3YASrXETiaG48Ub 1nuOmhFj1iFNDhMGV9FJC pbQAdP8EaaR4z UiBsGWAbEOZiZ5SaqFCzY UvnV642USdbQxS5NGSajm XuI9WlBMAfxLjwRlQ3w4U 5Ia6JNBtazhz7 U1UbNqyqhED+NF76ELMiE W73dYYsoUAwe5uwvBv8Ay GtTDGcGKQ8mHddNRazs5Q bVMCkR86gpQSh c2U6 (more content not included)... Normal [facility] Lab Miscellaneous-LCon 08-27 Lab Miscellaneous COMMENT Invalid Interpretation Code [facility] Comment on above: Result Comment: Test Ordered: [id number] Sex Horm Binding Glob, Serum Sex Horm Binding Glob, Serum 73.8 nmol/L Reference Range: 17.3-125.0 Performed at: [facility] [address] [id number] PhD Marely Enriquez Performed By: #### 1 [id number] ####[facility] [id number] [place] [address] Consent for Treatmenton 07-30 Consent for Treatment [id number]#1 .00CD:127 Normal [facility] Lab Miscellaneous-LCon 08-26 Test Code 706380 Invalid Interpretation Code [facility] Comment on above: Performed By: #### 1 [id number] ####[facility] [id number] [place] [address] Test Name SHBG Invalid Interpretation Code [facility] Comment on above: Performed By: #### 1 [id number] ####[facility] [address] [place] [address] Physician Orderon 08-26-2022 Physician Order [id number]# 1.00CD:127 Normal [facility] Progesteroneon 08-26-2022 Progesterone [Mass/Vol] 1.20 ng/mL Invalid Interpretation Code [facility] Comment on above: Result Comment: REFE RENCE RANGE Males 0.14-2.06 ng/mL Non- Females Follicular 0.10-0.60 ng/mL Luteal 3.00-17.5 ng/mL Midluteal 3.30-18.6 ng/mL Post-Menopausal 0.10-0.40 ng/mL First Trimester 8.30-66.5 ng/mL Second Trimester 18.9-66.1 ng/mL Third Trimester 35.8-312.4 ng/mL Performed By: #### 1 [id number], [id number] #### [facility] [address] [place] [address] TSHon 08-26-2022 TSH Qn 1.89 m[IU]/L Normal 0.34-5.60 [facility] Comment on above: Performed By: #### 1 [id number], [id number], [id number], [id number], [id number] #### [facility] [address] [place] [address] Vitamin D 25 Hydroxyon 08-26 25-hydroxyvitamin D3 [Mass/Vol] 40.7 ng/mL Normal 30.0-100.0 [facility] Comment on above: Result Comment: Vit lorenzo D deficiency has been defined as a level of serum 25-OH vitamin D less than 20 ng/mL (1,2) by the [place] [employer] and an Endocrine Society practice guideline. The Endocrine Society further defined vitamin D insufficiency as a level between 21 and 29 ng/mL (2). 1. IOM ([place] of [employer]). 2010. Dietary reference intakes for calcium and D. [place]: The National Academies Press. 2. Yael MF, Aracely NC, Nikolas FULLER, et al. Evaluation, treatment, and prevention of vitamin D deficiency: an Endocrine Society clinical practice guideline. JCEM. 2010; 96 (7):1911-30. Performed By: #### 1 [id number], [id number], [id number], [id number], [id number], [id number] #### [facility] [address] [place] [address] XR WRIST RIGHT 3 VIEWSon XR WRIST [...] changes adjacent to the distal ulna Normal [facility] XR SHOULDER LEFT (MIN 2 VIEW S)on [...] Pelayo Jr., MD 03/06/21 Final result Normal [facility] XR SHOULDER LEFT (MIN 2 VIEW S)Ordered By: Aubrie Mcduffie on 03-06-2021 Normal left shoulder. [employer] Work Phone: EXAM: XR SHOULDER LEFT (MIN 2 VIEWS) HISTORY: M25.512. 50-year-old female left shoulder pain, fell 2 weeks ago. COMPARISON: None. TECHNIQUE: 3 views left shoulder. FINDINGS: Acromioclavicular and glenohumeral joints are normal. Negative for calcific bursitis. [employer] Work Phone: Kj, [employer] Incoming Radiant Results From [employer] - 03/06/2021 6:09 PM EDT EXAM: XR SHOULDER LEFT (MIN 2 VIEWS) HISTORY: M25.512. 50-year-old female left shoulder pain, fell 2 weeks ago. COMPARISON: None. TECHNIQUE: 3 views left shoulder. FINDINGS: Acromioclavicular and glenohumeral joints are normal. Negative for calcific bursitis. IMPRESSION: Normal left shoulder. [employer] Work Phone: [employer] Phone: Encounters Encounter Date Encounter Type Care Provider Facility Start: 11-11-2023 End: 11-11-2023 ambulatory AUBRIE MCDUFFIE Not Available Start: 10-06-2023 End: 10-06-2023 ambulatory AUBRIE MCDUFFIE Not Available Start: 10-04-2022 End: 10-05-2022 ambulatory SHEBA FRANZ Facility:[facility] Start: 10-04-2022 End: 10-04-2022 Patient encounter procedure SHEBA FRANZ [facility] Start: 09-03-2022 Office outpatient vi sit 15 minutes [facility] Start: 09-03-2022 End: 09-03-2022 ambulatory Deejay Larios Facility:[facility] Start: 09-03-2022 End: 09-03-2022 ambulatory Aubrie Mcduffie Work Phone: [facility] Work Phone: Start: 09-03-2022 End: 09-03-2022 Patient encounter procedure Aubrie Mcduffie Work Phone: [facility] Start: 08-26-2022 End: 08-27-2022 ambulatory SHEAB FRANZ Facility:[facility] Start: 01-01-2022 End: 01-02-2022 ambulatory SHANTHI PATTERSON FROY Facility: Start: 04-10-2021 ambulatory RAÚL S MITCH Facility:[facility] Start: 04-10-2021 ambulatory [facility] S MITCH Facility:[facility] Start: 03-06-2021 End: 03-09-2021 ambulatory AUBRIE Wei MCDUFFIE [facility] Start: 03-06-2021 End: 03-08-2021 Subsequent hospital visit by physician Austin Miranda Rad 1 [facility] Comment on above: Acute pain of left s houlder Start: 01-18-2021 ambulatory SHANTHI PATTERSON HERNANTrayJEROMYLana Facil ity:[facility]1 Start: 01-17-2021 End: 01-17-2021 Emergency department patient visit [facility] Procedures Date Procedure Procedure Detail Performing Clinician Start: 09-03-2022 Plain X-ray of right wrist Aubrie Froy Work Phone: Start: 03-06-2021 Radex shoulder compl ete minimum 2 views Aubrie Wei Mcduffie Work Phone: Removal of ovarian cyst FADI VALERA Plan of Treatment Date Care Activity Detail Author Start: 03-28-2021 Influenza vaccination Flu vaccine (# 1) [employer] Phone: Start: 2016 Screening for malign ant neoplasm of colon Colon cancer screen colonoscopy [employer] Phone: Start: 2011 Lipid panel Lipid screen [facility] Work Phone: Start: 1992 Screening for malign ant neoplasm of cervix Cervical cancer screen [employer] Phone: Start: 1990 DTaP/Tdap/Td vaccine (1 - Tdap) DTaP/Tdap/Td vaccine (1 - Tdap) [employer] Phone: Start: 1986 HIV screening HIV screen Michelle [facility] Work Phone: Start: 1983 COVID-19 Vaccine (1) COVID-19 Vaccin e (1) [facility] Work Phone: Start: 1977 Pneumococcal 0-64 ye ars Vaccine (1 of 2 - PPSV23) Pneumococcal 0-64 years Vaccine (1 of 2 - PPSV23) [facility] Work Phone: Start: 1971 Hepatitis C screening Hepatitis C sc robert [facility] [employer] Phone: Payers Date Payer Category Payer Self-pay [id number] 2019 Medicaid [id number] 1971 Unknown [id number] 2.16.84 0.1.194602.3.579.2.174 1971 Unknown [id number] 2.16.84 0.1.527837.3.579.2.174 1971 Unknown [id number] 2.16.84 0.1.577141.3.579.2.174 1971 Unknown [id number] 2.16. 840.1.646245.3.579.2.594 1971 Unknown [id number] 2.16. 840.1.918156.3.579.2.594 1971 Unknown [id number] 2.16.84 0.1.350516.3.579.2.593 1971 Unknown [id number] 2.16.84 0.1.083647.3.579.2.593 1971 Unknown [id number] 2.16.8 40.1.181721.3.579.2.727 1971 Unknown [id number] 2.16.8 40.1.351696.3.579.2.727 1971 Unknown [id number] 2.16.84 0.1.837740.3.579.2.1259 1971 Unknown [id number] 2.16.84 0.1.172238.3.579.2.1259 1959 Self-pay [id number] 1959 Unknown [id number] 1.2 .[id number] Unknown [id number] 2.16.8 40.1.840440.3.579.2.531 Social History Date Type Detail Facility Start: 01-17-2021 Tobacco smoking stat [facility] Current every day smoker [employer] Phone: History of tobacco use Cigarette Smoker [facility] Start: 01-17-2021 Tobacco use and exposure Never used [facility] (Formerly [employer]) Start: 1970 Sex Assigned At Not on file [email or web address] Phone: Start: 01-10-2021 Tobacco smoking stat [facility] Smoker (finding) [facility] Start: 1970 Sex Assigned At Female F [facility] Sex Assigned At [facility] Start: 12-13-2019 Tobacco smoking status Heavy t obacco smoker (finding) [facility] Tobacco smoking status Never [facility] Medical Equipment Procedure Code Equipment Code Equipment Origin al Text Equipment Identifier Dates ORIF, fracture, wrist Orthopaedic fixation plate, non-bioabsorbable, sterile ()[id number] FDA Start: 01-10-2021 ORIF, fracture, wrist Orthopaedic bone screw, non-bioabsorbable, non-sterile ()[id number] FDA Start: 01-10-2021 ORIF, fracture, wrist Orthopaedic bone screw, non-bioabsorbable, non-sterile ()[id number] FDA Start: 01-10-2021 ORIF, fracture, wrist Orthopaedic bone screw, non-bioabsorbable, non-sterile ()[id number] FDA Start: 01-10-2021 ORIF, fracture, wrist Orthopaedic bone screw, non-bioabsorbable, non-sterile ()[id number] FDA Start: 01-10-2021 ORIF, fracture, wrist Orthopaedic bone screw, non-bioabsorbable, non-sterile ()[id number] FDA Start: 01-10-2021 ORIF, fracture, wrist Orthopaedic bone wire ()[id number] FDA Start: 01-10-2021 Evaluation + Plan note 10-04-2022 Note Date & Type Note Facility 10-04-2022 Evaluation + Plan note Diagnostic Tests PendingEstrone Lvl 10/04/22 [facility] Evaluation note 09-03-2022 Note Date & Type [...] intervention by Dr Nye, orthopedic hand surgeon. [employer] Other Clinical Note 01-01-2022 Note Date & [...] by: LAKEISHA MONET Date: 2022-01-01 17:45 [facility] [place] History general Narrative - Reported 12-26-2020 Note Date & Type Note Facility 12-26-2020 History general N arrative - Reported Type Medical History endometriosis Medical History ovarian cysts Surgical History laparoscopy x 4 Surgical History ORIF right distal radius 12/2020 [employer] Other Evaluation note Note Date & Type Note Facility Evaluation note Diagnosis Acute pain of left shoulder documented in this encounter [facility] Work Phone: Evaluation note Note Date & Type Note Facility Evaluation note No assessment information availa [facility] Work Phone: Hospital course Narrative Note Date & Type Note Facility Hospital course Narrative No data available for this section [facility] Hospital Discharge instructions Note Date & Type Note Facility Hospital Discharge instructions No data available for this section [facility] Progress note Note Date & Type Note Facility Progress note No data available for this section [facility] Summary Purpose Family History No Family History [...] section and content) DATE CREATED AUTHOR 03/10/2021 Michelle latham DATE CREATED AUTHOR AUTHOR'S ORGANIZ ATION 04/13/2021 [facility] DATE CREATED AUTHOR AUTHOR'S ORGANIZ ATION 01/07/2022 [facility] DATE CREATED AUTHOR AUTHOR'S ORGANIZ ATION 09/04/2022 [facility] DATE CREATED AUTHOR AUTHOR'S ORGANIZ ATION 10/14/2022 [facility] DATE CREATED AUTHOR AUTHOR'S ORGANIZ ATION 11/12/2023 [facility] EPIC Care Teams (unrecognized [...] BE BASED ON THE PRIMARY CLINICAL RECORDS. [employer] provides no warranty or guarantee of the accuracy or completeness of information in this document.
== END 2023-11-13 07:29 | disposition home or self-care (01) ==
LOC: CARD 07:28
PROVIDERS: PCP Nurse Practitioner; Visit Provider Nurse Practitioner
DX: R07.89 Other chest pain (principal); Z82.49 Family history of ischemic heart disease and other diseases of the circulatory system
CPT/HCPCS: 93005